=== PATIENT | male | born 1955 | race Caucasian/White ===

== ENCOUNTER → 2019-03-17 | Outpatient (CLI) | payer MEDICARE ==
--- NOTE | 2019-03-17 11:51 | RAD ---
4 radiographic left shoulder Indication: PAIN IN LEFT SHOULDER Comparison: None. Impression: A.C. and glenohumeral joint alignment normal without acute fracture or dislocation. Moderate AC joint osteoarthritis. Mild lateral downsloping acromion. Minimal glenohumeral joint osteoarthritis. Electronically signed by: Nestor Jones MD 03/17/2019 11:49 AM [facility]
== END ==
LOC: RAD 08:51
PROVIDERS: ATTEND Orthopaedic Surgery
DX: M19.012 Primary osteoarthritis, left shoulder (principal)

== ENCOUNTER 2019-06-18 05:52 | Day surgery (SDC) | payer MEDICARE ==
[2019-06-18] MEDS ORDERED: LACTATED RINGERS 1,000 ML ONE (06:15)
[2019-06-18] MEDS ORDERED: ceFAZolin SODIUM 1 GM VIAL ONE (06:15)
[2019-06-18] MEDS ORDERED: SODIUM CHL 0.9% 100ML MINI-BAG 100 ML IVPB ONE (06:15)
[2019-06-18] MEDS ORDERED: LIDOCAINE 1% 10 ML VIAL INJ ONE ×2 (07:00→07:24)
[2019-06-18] MEDS ORDERED: PROPOFOL 200 MG/20 ML VIAL IV ONE (07:00)
[2019-06-18] MEDS ORDERED: LACTATED RINGERS 1,000 ML IVS ONE (07:23)
[2019-06-18] MEDS ORDERED: BUPIVACAINE 0.25% INJ 30 ML VIAL INJ ONE (07:24)
[2019-06-18] MEDS ORDERED: MIDAZOLAM INJ 2 MG/2 ML VIAL ONE (08:22)
[2019-06-18] MEDS ORDERED: fentaNYL CITRATE INJ 50 MCG/ML 2 ML AMP ONE (08:23)
[2019-06-18] MEDS: ceFAZolin SODIUM 1 GM VIAL ONE ×2 (08:53→08:59)
[2019-06-18] MEDS: VANCOMYCIN HCL INJ 1,000 MG VIAL IVPB ONE ×2 (08:54→08:59)
--- NOTE | 2019-06-18 09:52 | OP ---
DATE OF PROCEDURE: 06/18/19 PREOPERATIVE DIAGNOSIS: 1. Left carpal tunnel syndrome. POSTOPERATIVE DIAGNOSIS: 1. Left carpal tunnel syndrome. PROCEDURE: 1. Left carpal tunnel release. SURGEON: Anil Hassan MD. DENTAL NURSE: Jean-Pierre Andersen CST, SA-C. ANESTHESIA: Local with sedation. COMPLICATIONS: None. FINDINGS: Thickening of the transverse carpal ligament. INDICATION: Mr. Rodriguez has a long history of symptoms consistent with carpal tunnel syndrome. Because of his ongoing symptoms and failure of conservative measures, the patient has requested operative intervention. After discussing the risks, benefits and alternatives to that, the patient has given informed consent for carpal tunnel release. PROCEDURE: The patient was brought to the Operating Room and placed in the supine position. Sedation was administered and local anesthetic was injected into the operative area under sterile conditions. After the injection of anesthetic, the arm was sterilely prepped and draped. A longitudinal incision was made directly overlying the transverse carpal ligament and blunt dissection was carried down to the ligament. The transverse carpal ligament was sharply transected along its length and a Edwards elevator was used to ensure complete release of the ligament. Once release had been confirmed, the wound was thoroughly irrigated and the wound was closed with Nylon suture. A sterile dressing was placed and the patient was taken to the Day Surgery Unit. POSTOPERATIVE PLAN: The patient has been encouraged to do range of motion of the digits and will followup with us in two days. #[id number] MTDD
[2019-06-18 10:07] VITALS: BP 130/81
[2019-06-18 10:12] VITALS: TEMP 97.4; O2SAT 98
== END 2019-06-18 09:50 | disposition home or self-care (01) ==
LOC: AMB 05:52
PROVIDERS: ATTEND Orthopaedic Surgery
DX: G56.02 Carpal tunnel syndrome, left upper limb (principal); I10 Essential (primary) hypertension; E11.9 Type 2 diabetes mellitus without complications; Z86.19 Personal history of other infectious and parasitic diseases; Z79.899 Other long term (current) drug therapy; Z79.84 Long term (current) use of oral hypoglycemic drugs
CPT/HCPCS: 01810; 36416; 64721; 80307; 82948; 87070; J0690; J2250; J3010; J3370; J3490; J7050; J7120